=== PATIENT | female | born 1945 | race Caucasian/White ===

== ENCOUNTER → 2018-07-08 | Outpatient (CLI) | payer MEDICARE ==
[2016-04-07 09:50] VITALS: BP 177/79
[~2018-07-08] MED LIST: ASPI1TAB31 PO; BARIUM SULFATE 340 GM SUSPENSION. PO ONE; BARIUM SULFATE 60% 355 ML SUSP PO ONE; CALC1TAB67 PO; FLUO20CA16 PO; LISI-130 PO; MULT1TAB52 PO; OMEG1CAP38 PO; OMEP1PAC PO; PROP80CA3 PO; RANI150C PO; SIMETHICONE/SOD BICARB/CITRIC ACID PACKET. PO ONE
--- NOTE | 2018-07-08 13:40 | RAD ---
CLINICAL INDICATION: INTERMITTENT NAUSEA AND VOMITTING AND GASTRIC REFLUX ISSUES. COMPARISON: None. TECHNIQUE: The patient was given effervescent granules and thick and thin consistency barium and images of the esophagus, stomach, duodenum, and small bowel were obtained under fluoroscopic guidance. Sequential radiographic images of the abdomen were also performed for small bowel follow-through examination FINDINGS: A hairspring cutter view shows moderate colonic stool content most prominent in the right colon. No abnormal small bowel dilatation.. Swallowing is normal resulting in no aspiration of contrast. The esophagus is normal in caliber. Esophageal motility is normal and emptying of contrast from the esophagus is prompt. The stomach is normal in size. The gastric mucosa is normal. No penetrating ulcers seen. Contrast empties promptly into the duodenum. The duodenum is normal in caliber. No obstruction in the duodenum. The duodenojejunal junction lies in a normal position. Gastroesophageal reflux was observed with a large volume of contrast extending to the upper thoracic esophagus.. Small bowel follow-through was performed. The serial films of barium traversing the small bowel to the cecum reveal a normal transit time. Contrast material is present in the colon after 40 minutes. Small bowel mucosal pattern and caliber is normal throughout. There is no evidence of obstruction or filling defect. The terminal ileum appears normal. IMPRESSION: 1. Gastroesophageal reflux. 2. Normal gastric emptying. 3. No findings of intestinal malrotation, and no evidence for duodenal obstruction. 4. No small bowel obstruction or focal filling defect is appreciated. Fluoroscopy time 2 minutes Electronically signed by: Richard Jones MD (07/08/2018 1:36 PM) [facility]
== END | disposition home or self-care (01) ==
LOC: RAD 08:06
PROVIDERS: ATTEND Internal Medicine Gastroenterology
DX: K21.9 Gastro-esophageal reflux disease without esophagitis (principal)
CPT/HCPCS: 74245